=== PATIENT | female | born 1950 | race Caucasian/White ===

== ENCOUNTER 2021-05-14 11:54 | Outpatient (REF) | payer MEDICARE, OTHER, SELFPAY | END 2021-05-14 11:55 | disposition home or self-care (01) | LOC: HO.WFDLDS 11:54 | PROVIDERS: Visit Provider Internal Medicine | DX: U07.1 COVID-19 (principal); Z20.822 Contact with and (suspected) exposure to COVID-19 | CPT/HCPCS: C9803; U0003; U0005 ==

== ENCOUNTER 2021-06-13 09:15 | Outpatient (REF) | payer SELFPAY ==
--- NOTE | 2021-06-13 09:40 | MHC.AU.P13 ---
Hearing Instrument Maintenance Date of Visit: 06/13/21 Right Ear: Feather Mixer: Phonak Model: AUDEO B70 DIRECT Serial Number: [id number] Repair Warranty: Loss and Damage Warranty: Battery Size: 13 Color: SILVER Domestic Housekeeper: 1S Type of Dome: MEDIUM CLOSED Type of Wax Guard: CERUSTOP Dispensed By: [facility] Date of Fittin06/10/2017 Left Ear: Feather Mixer: Phonak Model: AUDEO B70 DIRECT Serial Number: [id number] Repair Warranty: Loss and Damage Warranty: Battery Size: 13 Color: SILVER Domestic Housekeeper: 1S Type of Dome: MEDIUM CLOSED Type of Wax Guard: CERUSTOP Dispensed By: [facility] Date of Fittin06/10/2017 Follow-Up Summary: Hearing aids cleaned, wax guards and medium closed domes replaced - both amplifying clearly. Recommendations: Recommendations: Hearing instrument follow-up or maintenance as needed. Diagnosis Code(s): Primary Diagnosis: H90.3 Bilateral Sensorineural Hearing Loss Signature: Provider: TATI Landaverde-HIS
== END 2021-06-13 09:16 | disposition home or self-care (01) ==
LOC: HO.HAP 09:15
PROVIDERS: Visit Provider Internal Medicine Endocrinology, Diabetes & Metabolism
DX: Z46.1 Encounter for fitting and adjustment of hearing aid (principal); H90.3 Sensorineural hearing loss, bilateral
CPT/HCPCS: 99499

== ENCOUNTER 2021-12-18 13:44 | Outpatient (REF) | payer SELFPAY | END 2021-12-18 13:45 | disposition home or self-care (01) | LOC: HO.HAP 13:44 | PROVIDERS: Visit Provider Internal Medicine Endocrinology, Diabetes & Metabolism | DX: Z46.1 Encounter for fitting and adjustment of hearing aid (principal); H90.3 Sensorineural hearing loss, bilateral | CPT/HCPCS: 99499; V5267; V5299 ==

== ENCOUNTER 2022-06-17 10:45 | Outpatient (REF) | payer SELFPAY ==
--- NOTE | 2022-06-17 11:49 | MHC.AU.HA3 ---
Hearing Instrument Follow-Up- Binaural Date of Visit: 06/17/22 Right Ear: Eulogio, , Color, Serial Number: Lesley Lozada [id number] SN: [id number] Color: Silver Certified Shorthand Reporter Repair Warranty: Certified Shorthand Reporter Loss and Damage Warranty: Battery Size: 13 Cook Candy/Slim Tube: 1xS Earmold/Dome/CShell/SlimTip:Medium closed dome Type of Wax Guard: CeruStop Dispensed By: [facility] Date of Fittin06/10/2017 Left Ear: Eulogio, , Color, Serial Number: Lesley Lozada [id number] SN: [id number] Color: Silver Certified Shorthand Reporter Repair Warranty: Certified Shorthand Reporter Loss and Damage Warranty: Battery Size: 13 Cook Candy/Slim Tube: 1xS Earmold/Dome/CShell/SlimTip: Medium closed dome Type of Wax Guard: CeruStop Dispensed By: [facility] Date of Fittin06/10/2017 Follow-Up Summary: Edda reported that over two weeks ago she noticed that her left hearing aid sounded weak. She subsequently noticed the hearing in her left ear worsened even without the hearing aid. She contacted her PCP who advised that it is likely wax and recommended using ear drops. Edda has been using rlap-lso-bbzakia wax softening drops for the past week. She has an appointment on with her PCP for wax removal. Otoscopy confirmed significant occluding wax in the left ear and significant but non-occluding wax in the right ear. She also wanted to confirm that her hearing aids were working. Cleaned both hearing aids. Left wax guard was plugged. Replaced domes and wax guards and vacuumed microphones. A listening check demonstrated that the hearing aids are in good working order. Recommendations: Follow up with PCP for wax removal, bilaterally. Edda will also request a doctor's order for an updated hearing test as her hearing was last tested five years ago. Diagnosis Code(s): Primary Diagnosis: H90.3 Bilateral Sensorineural Hearing Loss Signature: Provider: Kylee Kraus, [facility]3]-A
== END 2022-06-17 10:46 | disposition home or self-care (01) ==
LOC: HO.HAP 10:45
PROVIDERS: Visit Provider Internal Medicine Endocrinology, Diabetes & Metabolism
DX: Z46.1 Encounter for fitting and adjustment of hearing aid (principal); H90.3 Sensorineural hearing loss, bilateral
CPT/HCPCS: 92593

== ENCOUNTER 2022-09-04 13:26 | Outpatient (REF) | payer MEDICARE, OTHER, SELFPAY | END 2022-09-04 13:27 | disposition home or self-care (01) | LOC: HO.SH 13:26 | PROVIDERS: Visit Provider Nurse Practitioner Family | DX: Z01.118 Encounter for examination of ears and hearing with other abnormal findings (principal); H90.3 Sensorineural hearing loss, bilateral | CPT/HCPCS: 92557; 92567 ==

== ENCOUNTER 2022-09-04 14:19 | Outpatient (REF) | payer SELFPAY | END 2022-09-04 14:20 | disposition home or self-care (01) | LOC: HO.HAP 14:19 | PROVIDERS: Visit Provider Student in an Organized Health Care Education/Training Program | DX: Z46.1 Encounter for fitting and adjustment of hearing aid (principal); H90.3 Sensorineural hearing loss, bilateral | CPT/HCPCS: V5299 ==